=== PATIENT | male | born 1985 | race Caucasian/White ===

== ENCOUNTER 2020-12-29 14:05 | Emergency (ER) | payer SELFPAY ==
[~2020-12-29] VITALS: Ht 177.8 cm; Wt 65.0 kg
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
--- NOTE | 2020-12-29 15:30 | Diagnostic Imaging Report ---
INDICATION: Right wrist injury with pain. FINDINGS: AP, lateral, and oblique views of the right wrist reveal an oblique fracture in the 4th metacarpal. No definite wrist fracture is seen and there is no malalignment. IMPRESSION: No acute wrist abnormality is identified; however, there is an oblique fracture in the 4th metacarpal. Dictated by: Dictated on workstation # [id number]
--- NOTE | 2020-12-29 15:31 | Diagnostic Imaging Report ---
INDICATION: Injury to the right hand. TIME OF EXAM: 2:56 PM 3 views right hand demonstrate an obliquely oriented fracture through the 4th metacarpal. No significant displacement or angulation is seen. Remaining metacarpals are intact. Phalanges are intact. Carpus is unremarkable. IMPRESSION: Obliquely oriented fracture of the 4th metacarpal. Dictated by: Dictated on workstation # [id number]
[2020-12-29 15:39] VITALS: BP 115/74
== END 2020-12-29 15:39 | disposition home or self-care (01) ==
LOC: ER 14:08
DX: S92.341A Displaced fracture of fourth metatarsal bone, right foot, initial encounter for closed fracture (principal); S63.501A Unspecified sprain of right wrist, initial encounter; F17.210 Nicotine dependence, cigarettes, uncomplicated; X50.1XXA Overexertion from prolonged static or awkward postures, initial encounter
CPT/HCPCS: 29125; 73110; 73130